=== PATIENT | female | born 1980 | race Caucasian/White ===

== ENCOUNTER 2021-11-22 09:30 | Emergency (ER) | payer MEDICAID ==
[~2021-11-22] VITALS: Ht 160 cm; Wt 71.2 kg
--- NOTE | 2021-11-22 09:44 | NUR ---
AMBULATED TO BED 7
[2021-11-22 09:45] VITALS: BP 91/56
[2021-11-22] MEDS ORDERED: KETOROLAC 60 MG/2 ML VIAL IM ONE (09:55)
--- NOTE | 2021-11-22 10:40 | NUR ---
41/F PRESENTS TO ED WITH C/O HEADACHE X2 DAYS, DENIES RECENT INJURY/TRAUMA, STATES PAIN RADIATING DOWN TO NECK. PATIENT ALSO C/O WRIST PAIN, STATES HX OF ARTHRITIS AND REPORTS SHE BELIEVES IS RELATED TO PAIN. REPORTS TAKING DICLOFENAC WITH NO RELIEF, DENIES DIZZINESS, VISION CHANGES OR NUMBNESS. PATIENT AMBULATORY WITH STEADY GAIT UPON ARRIVAL TO ED.
[2021-11-22] MEDS ORDERED: PRED20TA5 PO (11:21)
[2021-11-22] MEDS ORDERED: LID5T TP (11:21)
[2021-11-22] MEDS ORDERED: KETO10TA2 PO (11:21)
[2021-11-22 11:47] VITALS: BP 91/56
--- NOTE | 2021-11-22 11:47 | NUR ---
Patient discharged with v/s stable. Written and verbal after care instructions ABOUT JOINT PAIN given and explained. Patient alert, oriented and verbalized understanding of instructions. Ambulatory with steady gait. All questions addressed prior to discharge. ID band removed. Patient advised to follow up with PMD. Rx of KETOROLAC TROMETHAMINE, LIDODERM PATCH AND DELTASONE given. Patient educated on indication of medication including possible reaction and side effects. Opportunity to ask questions provided and answered.
== END 2021-11-22 11:47 | disposition home or self-care (01) ==
LOC: MED 09:30
DX: M25.59 Pain in other specified joint (principal); Z79.899 Other long term (current) drug therapy
CPT/HCPCS: 81002; 81025; 96372; 99283; J1885